=== PATIENT | male | born 1985 | race Caucasian/White ===

== ENCOUNTER → 2020-04-27 | Outpatient (CLI) | payer OTHER ==
[2020-04-27 11:08] LABS: HEMOGLOBIN 15.3 gm/dl (14.0-17.5); RED BLOOD COUNT 4.61 M/UL (4.20-5.50); WHITE BLOOD COUNT 9.6 K/UL (4.5-11.0)
[2020-04-27 11:41] LABS: BUN/CREATININE RATIO 12 (0-10)
== END ==
LOC: LAB 09:34
PROVIDERS: Family Medicine
DX: R51.9 Headache, unspecified (principal)
CPT/HCPCS: 36415; 80053; 80061; 85027

== ENCOUNTER → 2020-09-22 | Outpatient (CLI) | payer OTHER | LOC: KOH-I 08:35 | DX: R29.898 Other symptoms and signs involving the musculoskeletal system (principal) | CPT/HCPCS: 70450 ==

== ENCOUNTER → 2020-09-24 | Outpatient (CLI) | payer OTHER ==
[2020-09-24 12:10] LABS: BUN/CREATININE RATIO 14 (0-10)
== END ==
LOC: LAB 10:30
PROVIDERS: Family Medicine
DX: I10 Essential (primary) hypertension (principal); E78.5 Hyperlipidemia, unspecified
CPT/HCPCS: 36415; 80053; 80061

== ENCOUNTER → 2020-11-11 | Outpatient (CLI) | payer OTHER | LOC: EXRD 09:03 | DX: M54.5 Low back pain (principal); M25.561 Pain in right knee; M25.562 Pain in left knee; G89.29 Other chronic pain; M48.061 Spinal stenosis, lumbar region without neurogenic claudication | CPT/HCPCS: 72110; 73564 ==

== ENCOUNTER → 2020-11-18 | Outpatient (CLI) | payer SELFPAY | LOC: HEART 5 07:49 | DX: R07.9 Chest pain, unspecified (principal) | CPT/HCPCS: 78452; A9502 ==

== ENCOUNTER → 2021-01-24 | Outpatient (CLI) | payer SELFPAY ==
[2021-01-24 15:03] LABS: BUN/CREATININE RATIO 9 (0-10)
== END ==
LOC: LAB 12:55
PROVIDERS: Family Medicine
DX: I10 Essential (primary) hypertension (principal); E78.5 Hyperlipidemia, unspecified
CPT/HCPCS: 36415; 80053; 80061

== ENCOUNTER → 2021-08-02 | Outpatient (CLI) | payer OTHER | LOC: KOH-I 08:00 | DX: R10.11 Right upper quadrant pain (principal) | CPT/HCPCS: 76700 ==

== ENCOUNTER 2021-09-10 12:11 | Emergency (ER) | payer OTHER ==
[2021-09-10 13:51] LABS: HEMOGLOBIN 15.1 gm/dl (14.0-17.5); RED BLOOD COUNT 4.55 M/UL (4.20-5.50)
[2021-09-10 14:15] LABS: BUN/CREATININE RATIO 13 (0-10)
[2021-09-10] MEDS ORDERED: AZITHROMYCIN250 MG PO (16:34)
== END 2021-09-10 17:02 | disposition home or self-care (01) ==
LOC: ER1 12:11
PROVIDERS: Emergency Medicine
DX: J04.0 Acute laryngitis (principal); I10 Essential (primary) hypertension; F17.200 Nicotine dependence, unspecified, uncomplicated; Z20.822 Contact with and (suspected) exposure to COVID-19
CPT/HCPCS: 0240U; 71046; 80053; 85025; 87081; 87880; 99283

== ENCOUNTER 2021-09-16 13:24 | Emergency (ER) | payer OTHER ==
[~2021-09-16 13:24] MED LIST: AZITHROMYCIN250 MG PO
[2021-09-16 14:26] LABS: HEMOGLOBIN 14.6 gm/dl (14.0-17.5); RED BLOOD COUNT 4.42 M/UL (4.20-5.50); WHITE BLOOD COUNT 10.7 K/UL (4.5-11.0)
[2021-09-16 14:47] LABS: BUN/CREATININE RATIO 8 (0-10)
[2021-09-16] MEDS ORDERED: PREDNISONE 20 M20 MG PO (19:16)
[2021-09-16] MEDS ORDERED: PROVENTIL HFA6.7 GM INH (19:16)
== END 2021-09-16 19:32 | disposition home or self-care (01) ==
LOC: ER1 13:24
PROVIDERS: Physician Assistant
DX: J20.9 Acute bronchitis, unspecified (principal); R79.1 Abnormal coagulation profile; R07.2 Precordial pain; E78.5 Hyperlipidemia, unspecified; I10 Essential (primary) hypertension; F17.210 Nicotine dependence, cigarettes, uncomplicated; Z20.822 Contact with and (suspected) exposure to COVID-19
CPT/HCPCS: 0240U; 71045; 80053; 82550; 82553; 82962; 84484; 85025; 85379; 93005; 94664; 99285; Q9967

== ENCOUNTER → 2021-09-27 | Outpatient (CLI) | payer OTHER ==
[~2021-09-27] MED LIST changes: +PREDNISONE 20 M20 MG PO; +PROVENTIL HFA6.7 GM INH
== END ==
LOC: US 15:29
DX: R79.1 Abnormal coagulation profile (principal); R53.82 Chronic fatigue, unspecified; M25.50 Pain in unspecified joint
CPT/HCPCS: 93970

== ENCOUNTER → 2021-09-30 | Outpatient (CLI) | payer OTHER | LOC: CT 11:46 | DX: R79.1 Abnormal coagulation profile (principal); R10.84 Generalized abdominal pain; R07.9 Chest pain, unspecified; R53.83 Other fatigue; M25.50 Pain in unspecified joint; R53.82 Chronic fatigue, unspecified; R16.1 Splenomegaly, not elsewhere classified | CPT/HCPCS: ECHO; 71270; 93306; Q9967 ==

== ENCOUNTER → 2021-10-14 | Outpatient (CLI) | payer OTHER | LOC: US 07:26 | DX: R53.82 Chronic fatigue, unspecified (principal); R79.1 Abnormal coagulation profile; M25.50 Pain in unspecified joint | CPT/HCPCS: 70496; Q9967 ==